=== PATIENT | female | born 1940 | race Caucasian/White ===

== ENCOUNTER 2022-12-25 08:59 | Observation (INO) | payer MEDICARE, BC ==
[2022-12-25] MEDS ORDERED: SODIUM CHLORIDE 0.9% 500 ML IV STA (09:22)
--- NOTE | 2022-12-25 09:54 | ED Physician Documentation ---
History of Present Illness - Stated complaint Stated Complaint: SOA,HR IRREGULAR - Chief complaint Chief Complaint: Cardiac - History obtained from History obtained from: Patient - Additonal information Additional information: Patient is an 82-year-old female with a history of breast cancer, finished radiation therapy in September, presenting for evaluation of feeling short of air and palpitations since yesterday that comes intermittently. She also reports feeling fatigued since she finished radiation. She denies chest pain, fever, cough, abdominal symptoms. No leg swelling or pain. She does primarily live in [place] but also spends some time here. She is not on a blood thinner. Nothing makes her symptoms better or worse. She reports not having any issues with sleeping at night. Review of Systems Constitutional: denies: Fever Cardiac: denies: Chest pain / pressure Respiratory: reports: Dyspnea. denies: Cough GI: denies: Abdominal Pain, Vomiting : denies: Dysuria Neurologic: reports: Generalized weakness. denies: Headache PD PAST MEDICAL HISTORY - Allergies Allergies/Adverse Reactions: Allergies Allergy/AdvReac Type Severity Reaction Status Date / Time Penicillins Allergy Unknown Verified 12/25/22 09:17 Sulfa (Sulfonamide Allergy Unknown Verified 12/25/22 09:17 Antibiotics) PD ED PE NORMAL - General General: Alert and oriented X 3, No acute distress, Well developed/nourished - HEENT HEENT: Atraumatic - Neck Neck: Supple, no meningeal sign - Cardiac Cardiac: RRR, No murmur - Respiratory Respiratory: No respiratory distress, Clear bilaterally - Abdomen Abdomen: Normal bowel sounds, Soft, Non tender, Non distended - Derm Derm: Warm and dry - Extremities Extremities: No edema, No calf tenderness / cord - Neuro Neuro: Alert and oriented X 3, No motor deficit, Normal speech Results - Vitals Vitals: Vital Signs - 24 hr 12/25/22 12/25/22 12/25/22 09:14 09:33 10:20 Temperature 36.6 C Heart Rate 106 H 88 99 Respiratory 20 21 21 Rate Blood Pressure 128/107 H 140/69 H 148/71 H O2 Saturation 96 98 94 12/25/22 14:09 Temperature Heart Rate 87 Respiratory 14 Rate Blood Pressure 125/56 L O2 Saturation 96 Oxygen O2 Source Room air - EKG (time done) 0911 EKG releavant findings:: EKG personally interpreted by author of this note. Relevant findings are: Rate 106, sinus tachycardia, no STEMI Rate: Rate (enter#) (106) Rhythm: NSR Intervals: No: Prolonged QT Ischemia: No: ST elevation c/w ischemia - Labs Labs: Laboratory Tests 12/25/22 12/25/22 12/25/22 09:50 09:50 09:50 WBC RBC Hgb Hct MCV MCH MCHC RDW Plt Count MPV Neut # (Auto) Lymph # (Auto) Sublette # (Auto) Eos # (Auto) Baso # (Auto) Absolute Nucleated RBC Nucleated RBC % D-Dimer > 1050.0 H Sodium 140 Potassium 4.2 Chloride 104 Carbon Dioxide 23 Anion Gap 13.0 BUN 15 Creatinine 1.0 Estimated GFR (MDRD) 53 L Glucose 99 Calcium 10.2 Total Bilirubin 1.0 AST 35 ALT 33 Alkaline Phosphatase 99 Troponin I High Sens 9.1 B-Natriuretic Peptide 82 Total Protein 7.8 Albumin 4.7 Globulin 3.1 Albumin/Globulin Ratio 1.5 Lipase < 10 L TSH 1.61 SARS-CoV-2 (PCR) 12/25/22 12/25/22 10:22 10:23 WBC 7.0 RBC 4.25 Hgb 13.8 Hct 42.1 MCV 99.1 H MCH 32.5 H MCHC 32.8 RDW 13.1 Plt Count 147 MPV 11.1 H Neut # (Auto) 5.9 Lymph # (Auto) 0.5 L Sublette # (Auto) 0.5 Eos # (Auto) 0.1 Baso # (Auto) 0.1 Absolute Nucleated RBC 0.00 Nucleated RBC % 0.0 D-Dimer Sodium Potassium Chloride Carbon Dioxide Anion Gap BUN Creatinine Estimated GFR (MDRD) Glucose Calcium Total Bilirubin AST ALT Alkaline Phosphatase Troponin I High Sens B-Natriuretic Peptide Total Protein Albumin Globulin Albumin/Globulin Ratio Lipase TSH SARS-CoV-2 (PCR) NOT DETECTED PD Medical Decision Making - ED course Complexity details: reviewed results, re-evaluated patient, d/w patient ED course: Patient is an 82-year-old female presenting for evaluation of feeling short of air, palpitations and fatigued with symptoms worsening over the past several days. She is noted to be tachycardic with a heart rate of 106. Normal oxygenation saturations. Lungs are clear. Labs obtained including CBC, chemistries, TSH, D-dimer, troponin. Labs are significant for elevated D-dimer. Chest x-ray with possible infiltrate in the left upper lobe but this is also the area where patient has had radiation and she does not have symptoms to suggest pneumonia. CT angio of the chest was obtained which reveals bilateral segmental and subsegmental pulmonary embolism with possible area of lung infarct versus post radiation changes. Her heart rate has improved with IV fluids here. Her Pasi score places her into the high risk category. As such, I discussed the case with hospitalist Dr. Silva who agrees to admit the patient for further observation and management. Plan for Lovenox now and will transition to Eliquis. Departure - Departure Disposition: ED Place in Observation Clinical Impression: Bilateral pulmonary embolism Condition: Good Forms: PCP List
--- NOTE | 2022-12-25 09:58 | XRAY Report ---
PROCEDURE: Chest 1 View X-Ray INDICATIONS: SOA TECHNIQUE: One view of the chest was acquired. COMPARISON: None. FINDINGS: Surgical changes and devices: None. Lungs and pleura: Patchy left upper lobe opacities are suspicious for pneumonia. No pleural effusion or pneumothorax. Mediastinum: Mediastinal contours appear normal. Heart size is normal. Bones and chest wall: No suspicious bony lesions. Overlying soft tissues appear unremarkable. IMPRESSION: Patchy left upper lobe opacities are suspicious for pneumonia. Reviewed by: Tyson Allen MD on 12/25/2022 9:57 AM PDT Approved by: Tyson Allen MD on 12/25/2022 9:57 AM PDT Station ID: [id number]
[2022-12-25 10:13] LABS: ALBUMIN 4.7 g/dL (3.2-5.5); ALBUMIN/GLOBULIN RATIO 1.5 (1.0-2.2); ALKALINE PHOSPHATASE 99 IU/L (42-121); ALT ALANINE AMINOTRANSFERASE 33 IU/L (10-60); AST ASPARTATE AMINOTRANSFERASE 35 IU/L (10-42); BUN - BLOOD UREA NITROGEN 15 mg/dL (6-20); CALCIUM 10.2 mg/dL (8.5-10.3); CARBON DIOXIDE - CO2 23 mmol/L (21-32); CHLORIDE 104 mmol/L (101-111); GFR - MDRD 53 (>89); GLUCOSE 99 mg/dL (74-104); POTASSIUM 4.2 mmol/L (3.5-4.5); SODIUM 140 mmol/L (135-145); TOTAL PROTEIN 7.8 g/dL (6.4-8.9)
[2022-12-25 10:20] LABS: TROPONIN I HIGH SENSITIVITY 9.1 ng/L (2.3-14.8)
[2022-12-25 10:27] LABS: BASOPHILS # (AUTO) 0.1 10^3/uL (0.0-0.1); BASOPHILS % (AUTO) 0.7 %; EOSINOPHILS # (AUTO) 0.1 10^3/uL (0.0-0.7); EOSINOPHILS % (AUTO) 0.7 %; HCT - HEMATOCRIT 42.1 % (37.0-47.0); HGB - HEMOGLOBIN 13.8 g/dL (12.0-16.0); LYMPHOCYTES # (AUTO) 0.5 10^3/uL (1.5-3.5); LYMPHOCYTES % (AUTO) 7.2 %; MEAN CORPUSCULAR HEMOGLOBIN 32.5 pg (27.0-31.0); MEAN CORPUSCULAR HGB CONC 32.8 g/dL (32.0-36.0); MEAN CORPUSCULAR VOLUME 99.1 fL (81.0-99.0); MEAN PLATELET VOLUME 11.1 fL (7.9-10.8); MONOCYTES # (AUTO) 0.5 10^3/uL (0.0-1.0); MONOCYTES % (AUTO) 6.5 %; NEUTROPHILS # (AUTO) 5.9 10^3/uL (1.5-6.6); NEUTROPHILS % (AUTO) 84.3 %; PLT - PLATELET COUNT 147 10^3/uL (130-450); RED BLOOD COUNT 4.25 10^6/uL (4.20-5.40); RED CELL DISTRIBUTION WIDTH 13.1 % (12.0-15.0)
[2022-12-25 10:29] LABS: THYROID STIMULATING HORMONE 1.61 uIU/mL (0.34-5.60)
[2022-12-25 10:45] LABS: LIPASE < 10 U/L (11-82)
--- NOTE | 2022-12-25 13:10 | CT Report ---
PROCEDURE: CT angiogram chest with contrast INDICATIONS: SOA/tachycardia CONTRAST: Omni 300 80ml TECHNIQUE: After the administration of intravenous contrast, 2 mm axial images were acquired from the pulmonary apices to the posterior costophrenic angles during the arterial phase. In addition, 1 mm lung kernel and 5 mm soft tissue kernel reconstructions were performed. Coronal oblique maximum intensity project ion (MIP) reformats, 8 mm axial MIP, and 5 mm coronal and sagittal MPR reformats were then performed through the thorax. For radiation dose reduction, the following was used: automated exposure control, adjustment of mA and/or kV according to patient size. COMPARISON: None FINDINGS: Image quality: Excellent. Large vessels: Bilateral segmental and subsegmental filling defects consistent with pulmonary emboli. The cardiac intraventricular septum maintains a normal position. Lungs and pleura: No consolidation. In the left upper lobe, there is a wedge-shaped consolidation or infiltrate anteriorly which may reflect pulmonary infarct or be sequela of radiation therapy. Mediastinum: Heart size is normal. No pericardial effusion. No large vessel abnormality. No mediastin al adenopathy by size criteria. Sclerotic vascular calcification in the aorta without aneurysm. Chest wall and lower neck: Thyroid is unremarkable. No axillary or supraclavicular adenopathy by size . Large left-sided breast mass associated with the skin dimpling and focal skin thickening. The mass lesion measures 6.8 x 3.2 x 4.0 cm Bones: No aggressive osseous abnormality. Upper Abdomen: Cholecystectomy. Hepatic fatty infiltration. IMPRESSION: 1. Bilateral segmental and subsegmental pulmonary emboli without evidence of right heart strain. 2. Left anterior wedge-shaped and linear pulmonary consolidation/infiltrate may reflect pulmonary inf arct or be sequela of left breast radiation treatment. 3. Breast mass lesion with skin thickening and skin retraction consistent with known breast cancer st atus post XRT. Note: Critical results were discussed with Dr. Lemons at 11:59:55 AM AK time on 12/25/2022 Reviewed by: Michel Piper MD on 12/25/2022 12:09 PM AKDT Approved by: Michel Piper MD on 12/25/2022 12:09 PM AKDT Station ID: [id number]
[2022-12-25] MEDS ORDERED: ENOXAPARIN 80 MG/0.8 ML SYRINGE SUBQ STA (13:50)
[2022-12-25] MEDS ORDERED: ACETAMINOPHEN 325 MG TABLET PO PRN (14:08)
[2022-12-25] MEDS ORDERED: ONDANSETRON ODT 4 MG TABLET TL PRN (14:08)
[2022-12-25] MEDS ORDERED: SODIUM CHLORIDE FLUSH 0.9% 10 ML SYRINGE IVP PRN (14:08)
[2022-12-25] MEDS ORDERED: ONDANSETRON 4 MG/2 ML VIAL IVP PRN (14:08)
[2022-12-25] MEDS ORDERED: oxyCODONE 5 MG TABLET PO PRN (14:08)
--- NOTE | 2022-12-25 14:16 | HISTORY & PHYSICAL EXAMINATION ---
Chief Complaint - Chief Complaint Chief Complaint: short of breath w fatigue History of Present Illness - Admitted From Admitted From:: home - History Obtained From Records Reviewed: [facility] History obtained from: patient and Dr. Way Exam Limitations: none - History of Present Illness HPI Comment/Other: This is a elderly female Who lives in [facility]. She was born and raised in [place] [facility] so has many memories of [place]. She lives near her daughter in [facility] and was treated for breast cancer with a lumpectomy. Completed radiation therapy in late September. And started driving here to stay with friends on [facility]. She arrived October 27. She was warned that radiation would make her really fatigued. So as she stay tired, never really had energy, she attributed it to the radiation. On a daily basis she felt like she was losing ground. It went to barely able to get up and make a c ouple coffee. To getting up and making it to a chair and sitting there and not able to make a couple coffee. In the last day dyspnea on exertion was so severe that she finally came to the emergency room today. She denies chest pain, leg edema, fever, chills. She is on anastrozole 1 mg daily. And also takes a daily aspirin. . She presented to the emergency room via private vehicle For the above complaints as well as a hard knocking heart rate and increased shortness of breath since yesterday. She was with a heart rate of 106, blood pressure 128/107, respirations 20 and 96% on room air when she presented. Since then her tachycardia has come down. Blood pressure has also come down and is 125/56. Throughout her entire stay in the ED she has been 96%. Labs showed a normal CMP, normal BNP, and a normal troponin. CBC was normal. Slight elevation of MCV at 99. D-dimer was greater than 1050. Chest x-ray had partial left upper lobe opacity suspicious for pneumonia. Putting the syndrome together, the ER provider look for a PE and found her to have bilateral segmental and subseg mental pulmonary emboli without evidence of right heart strain. She has a left anterior wedge-shaped and linear pulmonary consolidation that reflects possible infarct versus left breast radiation treatment. She has a breast mass lesion with skin thickening and skin retraction consistent with known breast cancer after radiation therapy. The emergency room provider and I discussed the case. The patient's PESI score is quite high. Although her vital signs have normalized, I do believe it is pr udent to bring her in on the basis of the amount of emboli and the slight lung infarction she has. History - Past Medical History Cardiovascular: reports: Hypertension, High cholesterol Respiratory: reports: None Neuro: reports: None Endocrine/Autoimmune: reports: None GI: reports: Ulcerative colitis (On mesalamine 4 pills a day) GEOTHERMAL FIELD TECHNICIAN: reports: Other (G5, P2. 2 miscarriages, 1 .) : reports: None HEENT: reports: None Psych: reports: None Musculoskeletal: reports: Osteoarthritis MRSA Hx?: No - Past Surgical History General: reports: Colonoscopy /GEOTHERMAL FIELD TECHNICIAN: reports: Other (Lumpectomy x2) - Family & Social History Family History Comment/Other: Mom in her 90s of congestive heart failure but also had lung cancer as a smoker. Dad in his 90s of congestive heart failure. No siblings. 2 children. Daughter is healthy. Son had some type of cardiac event even though he is an athlete and required a valve surgery Living arrangement: At home Living Situation: Alone Social History Notes: 8 years ago. 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 She never smoked. She drinks 2 glasses of wine a night. She still lives independently in her own home. She moved from [facility] to [facility] [place] Substance History Use: Uses substance without health or social issues: Alcohol Abuse: Recurrent use of substance despite neg consequences: NONE Dependence: Experiences withdrawal or developed tolerances: NONE - POLST Patient has POLST: No POLST Status: DNR (No CPR, no intubation) Meds/Allgy - Home Medications Home Medications: Ambulatory Orders Medication Instructions Recorded Confirmed Anastrozole 1 mg PO DAILY 12/25/22 12/25/22 Aspirin [Aspirin EC] 81 mg PO DAILY 12/25/22 12/25/22 Atorvastatin Calcium 40 mg PO DAILY PM 12/25/22 12/25/22 Benazepril HCl 20 mg PO DAILY 12/25/22 12/25/22 Mesalamine [Lialda] 4.8 gm PO DAILY 12/25/22 12/25/22 amLODIPine [Norvasc] 5 mg PO ONCE 12/25/22 12/25/22 - Allergies Allergies/Adverse Reactions: Allergies Allergy/AdvReac Type Severity Reaction Status Date / Time Penicillins Allergy Unknown Verified 12/25/22 09:17 Sulfa (Sulfonamide Allergy Unknown Verified 12/25/22 09:17 Antibiotics) Review of Systems - Other Findings Other Findings: Above review of systems was completed. Other than fatigue, shortness of breath and GI complaints of ulcerative colitis, she has a negative review of systems Prior Level of Functionality: Moved to be closer to her daughter in [facility]. She is to live [place]. She still dresses herself, feed herself. Drives a car. Uses no durable medical equipment. Exam - Vital Signs Reviewed Vital Signs: Yes Vital Signs: Vital Signs x48h Temp Pulse Resp BP Pulse Ox 12/25/22 14:09 87 14 125/56 L 96 12/25/22 10:20 99 21 148/71 H 94 12/25/22 09:33 88 21 140/69 H 98 12/25/22 09:14 36.6 C 106 H 20 128/107 H 96 - Physical Exam General Appearance: positive: No acute distress, Alert, Other (Although she is notFatigued appearing, elderly female, looks stated age. Not tachypneic or tachycardic, it is an effort for her to sit and talk, and stay part of the conversation. She says this last month has been an effort of having guest in her house) Eyes Bilateral: positive: PERRL, EOMI ENT: positive: No signs of dehydration Neck: positive: No JVD. negative: Stiff neck Respiratory: positive: No respiratory distress. negative: Wheezes, Rales, Rhonchi Cardiovascular: positive: Regular rate & rhythm. negative: Systolic murmur, Diastolic murmur Peripheral Pulses: positive: 1+ Abdomen: positive: Non-tender, No organomegaly, Nml bowel sounds, No distention Skin: positive: Warm, Dry, Pallor Extremities: positive: Full ROM, No pedal edema. negative: Sharonda's sign/cords Neurologic/Psychiatric: positive: Oriented x3, CN's nml (2-12), Motor nml Conclusion/Plan - Problem List (1) Bilateral pulmonary embolism Conclusion/Plan: Context of a patient with breast cancer. This would predispose her to be hypercoagulable. No recent change in mobility status. She is on anastrozole as well. She has had recent change in her mobility status and that she is more s edentary because of because of fatigue as well as driving from [place] to here. Her blood clots could be provoked. Plan: Observation status Lovenox in the ER, start Eliama tonight, 10 mg p.o. twice daily I have educated her about interactions between anticoagulants and nonsteroidals. She cannot take aspirin, Aleve, ibuprofen, etc. She can take Tylenol. I will notify her PCP and oncologist that she is here. She plans on returning back to [place] in 2 weeks with car. I think that she will be fine. She will be getting out of the car every 2-3 hours. Plans on stopping the night in [place]. (2) Breast cancer Conclusion/Plan: Has completed radiation therapy. Status postlumpectomy. Now on adjuvant therapy with anastrozole. Follow-up with oncology to see if anastrozole still indicated (3) Hypertension Conclusion/Plan: Blood pressure has been normal in the emergency room. She states that she did take her benazepril and amlodipine last night. She will take them tomorrow morning. Qualifiers: Hypertension type: primary hypertension Qualified Code(s): I10 - Essential (primary) hypertension (4) Ulcerative colitis Conclusion/Plan: She says that she takes her pills in the morning. When I discharge her tomorrow morning she will take her own pills from home. Qualifiers: Ulcerative colitis location: unspecified ulcerative colitis location - Lab Results Lab results reviewed: Yes Fish Bones: 12/25/22 10:23 12/25/22 09:50 - Diagnostic Imaging Results Diagnostic Imaging Results: positive: Final report reviewed - EKG Results EKG Interpreted Independently: No Core Measures - Anticipated LOS I expect patient to be DC'd or transferred within 96 hours.: Yes - DVT/VTE - Prophylaxis VTE/DVT Prophylaxis med ordered at admit?: Yes
--- NOTE | 2022-12-25 16:26 | PHARMACY PROGRESS NOTE ---
- Best Possible Medication History Admit Date and Time: 12/25/22 1408 Processed by: Pharmacy Medication History completed: Yes Patient Interview: Completed Secondary Source(s): Written medication list, Insurance records As the person ultimately responsible for medication therapy, providers are able to order a medication from an existing home medication list in [facility] via the "Reconcile Routine" prior to Confirmation of that medication by mining support worker. Such practice is discouraged except when the physician, in their clinical judgment, deems that a medical need exists for a medication without regard to previous use.
[2022-12-25] MEDS ORDERED: iohexoL-300 100 ML VIAL IVP ONE (16:40)
[2022-12-25] MEDS: SODIUM CHLORIDE FLUSH 0.9% 10 ML SYRINGE IVP SCH (21:11)
[2022-12-25] MEDS: APIXABAN 5 MG TABLET PO SCH (21:11)
[2022-12-26] MEDS: SODIUM CHLORIDE FLUSH 0.9% 10 ML SYRINGE IVP SCH ×2 (04:00→08:36)
--- NOTE | 2022-12-26 08:21 | Discharge Plan ---
Discharge Plan Problem Reviewed?: Yes Disposition: Home, Self Care Condition: Good Prescriptions: Apixaban [Eliquis] 10 mg PO BID #84 tab Diet: Regular Activity Restrictions: Activity as Tolerated Shower Restrictions: No Driving Restrictions: No Health Concerns: You have a history of breast cancer with lumpectomy a year ago. Radiation ther apy was completed in September of this year. You are also on anastrozole. You then took a long car trip from [place] to the [place]. All of these are risk factors for developing deep venous thrombosis which are blood clots of the veins. Unfortunately you do then had those blood clots break loose and shower both sides of your lungs. 1 clot was big enough that it most likely infarcted or completely cut off the blood supply to a small piece of your lung. You presented to the emergency room with fatigue and shortness of breath that was gradually getting worse over the last 2 months. Particularly worse over the 2 days before you came in. Treatment was blood thinners. You are initially given a subcutaneous form of an instantly acting blood thinner. You are now converted over to pill form. Plan of Treatment: 1. Please see your primary care provider in the next month or 2. I would also suggest you follow-up with your oncologist so that they have continuity of care. Your oncologist may decide how long you are going to stay on Eliquis. 2. The usual timeframe for being on Eliquis is 3 to 6 months. However, your oncologist may extend that time because of your history of breast cancer. Please see your oncologist in follow-up in the next month. 3. Blood thinners are very effective. They act almost instantly. While you are on blood thinners you cannot take any other blood thinners. As such you cannot take aspirin, ibuprofen, Naprosyn. Always read the labels of medication to make sure you are not taking an anti-inflammatory. Always remind your doctors or any new provider you meet that you are on Eliquis. That way did not give you any medications that could interact with Eliquis. Care Goals: To return back to your home in the next 2 weeks and relax. This last few weeks have been very distressful for you. Assessment: Patient is an alert, oriented to person place and situation patient. Promises to follow through with seeing her providers and taking her medication No Smoking: If you smoke, Please STOP! Call for help.
[2022-12-26] MEDS: APIXABAN 5 MG TABLET PO SCH (08:36)
--- NOTE | 2022-12-26 10:12 | DISCHARGE SUMMARY ---
"Discharge Summary Admit Date: 12/25/22 Discharge Date: 12/26/22 Discharging Provider: Mayra Silva md Primary Care Provider: Mark Oscar MD Code Status: Do Not Attempt Resuscitation Condition at Discharge: Good Discharge Disposition: 01 Home, Self Care - DIAGNOSES Discharge Diagnoses with Status of Each Condition: 1. Multiple bilateral pulmonary emboli 2. Left upper lobe wedge lung infarction 3. Breast cancer - HPI History of Present Illness: his is a elderly female Who lives in [facility]. She was born and raised in [place] so has many memories of [place]. She lives near her daughter in [facility] and was treated for breast cancer with a lumpectomy. Completed radiation therapy in late September. And started driving here to stay with friends on [facility]. She arrived October 27. She was warned that radiation would make her really fatigued. So as she stay tired, never really had energy, she attributed it to the radiation. On a daily basis she felt like she was losing ground. It went to barely able to get up and make a couple coffee. To getting up and making it to a chair and sitting there and not able to make a couple coffee. In the last day dyspnea on exertion was so severe that she finally came to the emergency room today. She denies chest pain, leg edema, fever, chills. She is on anastrozole 1 mg daily. And also takes a daily aspirin. . She presented to the emergency room via private vehicle For the above complaints as well as a hard knocking heart rate and increased shortness of breath since yesterday. She was with a heart rate of 106, blood pressure 128/107, respirations 20 and 96% on room air when she presented. Since then her tachycardia has come down. Blood pressure has also come down and is 125/56. Throughout her entire stay in the ED she has been 96%. Labs showed a normal CMP, normal BNP, and a normal troponin. CBC was normal. Slight elevation of MCV at 99. D-dimer was greater than 1050. Chest x-ray had partial left upper lobe opacity suspicious for pneumonia. Putting the syndrome together, the ER provider look for a PE and found her to have bilateral segmental and subsegmental pulmonary emboli without evidence of right heart strain. She has a left anterior wedge-shaped and linear pulmonary consolidation that reflects possible infarct versus left breast radiation treatment. She has a breast mass lesion with skin thickening and skin retraction consistent with known breast cancer after radiation therapy. The emergency room provider and I discussed the case. The patient's PESI score is quite high. Although her vital signs have normalized, I do believe it is prudent to bring her in on the basis of the amount of emboli and the slight lung infarction she has. - Past Medical History Cardiovascular: reports: Hypertension, High cholesterol Respiratory: reports: None Neuro: reports: None Endocrine/Autoimmune: reports: None GI: reports: Ulcerative colitis (On mesalamine 4 pills a day) [employer]ING [employer]EL INSPECTOR: reports: Other (G5, P2. 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 Left upper lobe with wedge-shaped consoli dation or infiltrate anteriorly which may reflect pulmonary infarct or sequela of radiation therapy. Left-sided breast mass measures 6.8 x 3.2 x 4.0 cm. - HOSPITAL COURSE Hospital Course: The patient was started on Lovenox subcu. She was then transition to [facility]. We did discuss advance care planning and she has already moved from [facility] to [facility] to be closer to her daughter. She is still relatively independent. Pain-free. Her main disability consist of fatigue. She is not using any durable medical equipment at this time. She does wish to be DO NOT RESUSCITATE. Overnight there is no hypoxia, chest pain. No hemodynamic instability. I warned her that unfortunately she is could still have more emboli in spite of being on anticoagulation. She plans on leaving [facility] in 2 weeks and driving back to [place]. She will be driving with her daughter. She asked if that was safe. I said that was probably an acceptable activity. It would be faster to fly but she says that she has a car here. She is discharged in stable condition. Prognosis is not clear considering she still has a breast mass. Temperature is 36.8. Heart rate 75. Blood pressure 155/64. Respirations 18. 94% on room air. She is an elderly female who appears fatigued. Just the effort of talking exhaust her but she does not get tachypneic and does not have increased respiratory effort. She appears slightly older than stated age. She is 5 foot 7 inches tall, 84 kg. Supple neck. Lungs are clear to auscultation and percussion without any increased respiratory effort. Regular rate and rhythm. Abdomen is soft, nontender. Extremities have no edema. Homans negative. She is ambulating in the room without assist, no ataxia. This document was made in part using voice recognition software. While efforts are made to proofread this document, sound alike and grammatical errors may occur. - ALLERGIES Allergies/Adverse Reactions: Allergies Allergy/AdvReac Type Severity Reaction Status Date / Time Penicillins Allergy Unknown Verified 12/25/22 09:17 Sulfa (Sulfonamide Allergy Unknown Verified 12/25/22 09:17 Antibiotics) - MEDICATIONS Home Medications: Ambulatory Orders Medication Instructions Recorded Confirmed Anastrozole 1 mg PO DAILY 12/25/22 12/25/22 Atorvastatin Calcium 40 mg PO DAILY PM 12/25/22 12/25/22 Benazepril HCl 20 mg PO DAILY 12/25/22 12/25/22 Mesalamine [Lialda] 4.8 gm PO DAILY 12/25/22 12/25/22 amLODIPine [Norvasc] 5 mg PO ONCE 12/25/22 12/25/22 Apixaban [Eliquis] 10 mg PO BID #[id number] tab 12/26/22 - LABS Result Diagrams: 12/25/22 10:23 12/25/22 09:50"
[2022-12-27 10:56] VITALS: BP 151/77; O2SAT 98
== END 2022-12-26 13:00 | disposition home or self-care (01) ==
LOC: ED 08:59 → MS2 14:08
PROVIDERS: ADMIT Specialist; ATTEND Specialist
DX: I26.99 Other pulmonary embolism without acute cor pulmonale (principal); R00.0 Tachycardia, unspecified; R00.2 Palpitations; Z20.822 Contact with and (suspected) exposure to COVID-19; Z85.3 Personal history of malignant neoplasm of breast; Z88.0 Allergy status to penicillin; Z88.2 Allergy status to sulfonamides; Z92.3 Personal history of irradiation; I10 Essential (primary) hypertension; E78.00 Pure hypercholesterolemia, unspecified; M19.90 Unspecified osteoarthritis, unspecified site; Z66 Do not resuscitate; Z79.60 Long term (current) use of unspecified immunomodulators and immunosuppressants; Z82.49 Family history of ischemic heart disease and other diseases of the circulatory system; Z80.1 Family history of malignant neoplasm of trachea, bronchus and lung; Z79.82 Long term (current) use of aspirin; Z79.899 Other long term (current) drug therapy
CPT/HCPCS: 36415; 71045; 71275; 80053; 83690; 83880; 84443; 84484; 85025; 85379; 87635; 93005; 96372; 99284; 99285; A9270; G0378; J1650; Q9967